=== PATIENT | male | born 1995 ===

== ENCOUNTER 2017-02-12 12:57 | Emergency (ER) | payer OTHER ==
[2017-02-12 13:13] VITALS: BP 138/88; PULSE 94; RESP 16; TEMP 98; O2SAT 98
--- NOTE | 2017-02-12 13:40 | ED PDOC ---
HPI: Abdomen Time Seen by Provider: 02/12/17 13:12 Chief Complaint (Nursing): Abdominal Pain Chief Complaint (Provider): Abdominal Pain History Per: Patient History/Exam Limitations: no limitations Onset/Duration Of Symptoms: Days (x2 wks) Current Symptoms Are (Timing): Still Present Location Of Pain/Discomfort: Epigastric Additional Complaint(s): Dontae Ramires is a 21 year old male that presents to the ED with a chief complaint of epigastric pain that he has been experiencing for the past two weeks. Patient reports that he was seen as an outpatient 2 weeks ago and diagnosed with H.pylori. He states that he took antibiotics and Omeprazole for 8 days and then stopped. Denies any vomiting, diarrhea, fever, or blood. Past Medical History Reviewed: Historical Data, Nursing Documentation, Vital Signs Vital Signs: Last Vital Signs Temp 98 F 02/12/17 13:10 Pulse 94 H 02/12/17 13:10 Resp 16 02/12/17 13:10 BP 138/88 02/12/17 13:10 Pulse Ox 98 02/12/17 13:42 - Medical History PMH: No Chronic Diseases - Family History Family History: States: Unknown Family Hx - Home Medications Home Medications: Ambulatory Orders Medication Instructions Recorded Pantoprazole Sodium [Protonix] 40 mg PO DAILY #30 tablet. 02/12/17 - Allergies Allergies/Adverse Reactions: Allergies Allergy/AdvReac Type Severity Reaction Status Date / Time No Known Allergies Allergy Verified 02/12/17 13:13 Review of Systems Constitutional: Negative for: Fever Gastrointestinal: Positive for: Abdominal Pain (epigastric pain). Negative for : Vomiting, Diarrhea Physical Exam - Reviewed Nursing Documentation Reviewed: Yes Vital Signs Reviewed: Yes - Physical Exam Appears: Positive for: Non-toxic, No Acute Distress Head Exam: Positive for: ATRAUMATIC, NORMOCEPHALIC Skin: Positive for: Normal Color, Warm Eye Exam: Positive for: Normal appearance, EOMI, PERRL Cardiovascular/Chest: Positive for: Regular Rate, Rhythm. Negative for: Murmur Respiratory: Positive for: Normal Breath Sounds. Negative for: Wheezing Gastrointestinal/Abdominal: Positive for: Tenderness (Mild epigastric TTP). Negative for: Normal Exam Extremity: Positive for: Normal ROM (Full ROM) Neurologic/Psych: Positive for: Alert, Oriented. Negative for: Motor/Sensory Deficits - Laboratory Results Result Diagrams: 02/12/17 13:54 02/12/17 13:54 - ECG O2 Sat by Pulse Oximetry: 98 (RA) Pulse Ox Interpretation: Normal Medical Decision Making Medical Decision Making: Impression: Epigastric Pain Plan: * CMP * CBC * Pepcid 20 mg PO * Reevaluation Scribe Attestation: Documented by Katie Suarez, acting as a scribe for Quique Hwang MD. Provider Scribe Attestation: All medical record entries made by the Scribe were at my direction and personally dictated by me. I have reviewed the chart and agree that the record accurately reflects my personal performance of the history, physical exam, medical decision making, and the department course for this patient. I have ao personally directed, reviewed, and agree with the discharge instructions and disposition. Disposition - Clinical Impression Clinical Impression: Gastritis - Patient ED Disposition Is Patient to be Admitted: No Counseled Patient/Family Regarding: Studies Performed, Diagnosis, Need For Followup, Rx Given - Disposition Referrals: [facility] [Outside] Disposition: Routine/Home Disposition Time: 16:00 Condition: FAIR Prescriptions: Pantoprazole Sodium [Protonix] 40 mg PO DAILY #30 tablet. Instructions: Gastritis (ED), Helicobacter Pylori (ED) Forms: Onaro (Armenian) Print Language: GUINEAN
[2017-02-12 14:11] LABS: BASO # 0.1 K/uL (0.0-0.2); EOS # 0.2 K/uL (0.0-0.7); EOS % 3.8 % (0.0-4.0); HEMOGLOBIN 15.7 g/dL (12.0-18.0); LYMPH # 1.7 K/uL (1.0-4.3); LYMPH % 31.3 % (20.0-40.0); MEAN CELL VOLUME 84.1 fl (80.0-94.0); MEAN CORPUSCULAR HEMOGLOBIN 28.5 pg (27.0-31.0); MEAN CORPUSCULAR HGB CONC 33.9 g/dL (33.0-37.0); MEAN PLATELET VOLUME 10.1 fl (7.2-11.7); MONO # 0.6 K/uL (0.0-0.8); MONO % 11.8 % (0.0-10.0); NEUT # 2.8 K/uL (1.8-7.0); NEUT % 52.1 % (50.0-75.0); NRBC % 0.2 % (0.0-0.0); RBC 5.5 Mil/uL (4.40-5.90); RED CELL DISTRIBUTION WIDTH 13.6 % (11.5-14.5); WHITE BLOOD COUNT 5.4 K/uL (4.8-10.8)
[2017-02-12 14:17] LABS: ALT/SGPT 117 U/L (21-72); AST/SGOT 75 U/L (17-59); BLOOD UREA NITROGEN 11 mg/dl (9-20); CALCIUM 9.5 mg/dL (8.4-10.2); GFR AFRICAN-AMERICAN > 60; GFR NON-AFRICAN AMERICAN > 60
[2017-02-12 14:22] LABS: ALB/GLOB RATIO 1.3 (1.0-2.1)
--- NOTE | 2017-02-12 15:26 | US ---
HISTORY: abd pain COMPARISON: None. TECHNIQUE: Sonographic evaluation of the right upper quadrant of the abdomen. FINDINGS: LIVER: Measures 14.3 cm in length. Normal echogenicity of the liver parenchyma. No mass. No intrahepatic bile duct dilatation. GALLBLADDER: Unremarkable. No gallstones. COMMON BILE DUCT: Measures 2 mm. No stones. No dilatation. PANCREAS: Unremarkable as visualized. No mass. No ductal dilatation. RIGHT KIDNEY: Measures 10.3 cm in length. Normal echogenicity. No calculus, mass, or hydronephrosis. AORTA: No aneurysmal dilatation. IVC: Unremarkable. OTHER FINDINGS: None . IMPRESSION: Unremarkable ultrasound examination. No evidence of cholelithiasis or cholecystitis.
== END 2017-02-12 16:14 | disposition home or self-care (01) ==
LOC: H.ER 12:57
DX: K29.70 Gastritis, unspecified, without bleeding (principal)